=== PATIENT | female | born 1990 | race Two or more races ===

== ENCOUNTER → 2019-02-23 | Emergency (ER) | payer OTHER ==
[~2019-02-23] VITALS: Ht 160 cm; Wt 64.9 kg
== END | disposition left against medical advice (07) ==
LOC: ER 18:31
DX: Z53.20 Procedure and treatment not carried out because of patient's decision for unspecified reasons (principal)

== ENCOUNTER 2019-03-16 15:31 | Emergency (ER) | payer OTHER ==
[~2019-03-16] VITALS: Ht 160 cm; Wt 64.4 kg
== END 2019-03-16 21:45 | disposition home or self-care (01) ==
LOC: ER 15:31
DX: S13.4XXA Sprain of ligaments of cervical spine, initial encounter (principal); V49.9XXA Car occupant (driver) (passenger) injured in unspecified traffic accident, initial encounter; Y93.89 Activity, other specified; Y92.488 Other paved roadways as the place of occurrence of the external cause; Y99.8 Other external cause status